=== PATIENT | female | born 1960 | race Hispanic/Latino ===

== ENCOUNTER 2024-07-06 14:26 | Emergency (ER) | payer OTHER ==
[~2024-07-06] VITALS: Ht 165.1 cm; Wt 90.7 kg
[2024-07-06] MEDS ORDERED: PROCHLORPERAZINE MALEATE TAB 10 MG TAB PO STA (15:41)
[2024-07-06] MEDS ORDERED: ONDANSETRON HCL 4 MG ORAL DISINTEGRATING TAB PO ONE (15:45)
[2024-07-06] MEDS ORDERED: KETOROLAC TROMETHAMINE 60 MG/2 ML VIAL IM ONE (15:45)
[2024-07-06] MEDS ORDERED: ACETAMINOPHEN 325 MG TAB PO ONE (15:45)
[2024-07-06 16:15] LABS: BILIRUBIN,URINE NEGATIVE (NEGATIVE); CLARITY,URINE CLEAR (CLEAR); COLOR,URINE YELLOW (YELLOW); GLUCOSE, URINE NEGATIVE (NEGATIVE); KETONES,URINE NEGATIVE (NEGATIVE); LEUKOCYTE ESTERASE ,URINE TRACE (NEGATIVE); NITRITE,URINE NEGATIVE (NEGATIVE); PH,URINE 7 (5 - 7); PROTEIN,URINE DIPSTICK NEGATIVE (NEGATIVE); URINE UROBILINOGEN 0.2 mg/dL (0.2 - 1)
[2024-07-06 16:25] LABS: BACTERIA,URINE RARE /HPF; EPITHELIAL CELLS,URINE RARE /LPF
[2024-07-06 18:10] VITALS: PULSE 70; RESP 17; TEMP 98.8; O2SAT 98
== END 2024-07-06 18:10 | disposition home or self-care (01) ==
LOC: ER 15:44
DX: R50.9 Fever, unspecified (principal); U07.1 COVID-19; R30.0 Dysuria; E78.5 Hyperlipidemia, unspecified
CPT/HCPCS: 81001; 87400; 99282; U0002